=== PATIENT | female | born 1945 | race Caucasian/White ===

== ENCOUNTER 2016-05-08 14:18 | Outpatient (CLI) | payer OTHER ==
[~2016-05-08 14:18] MED LIST: ACETAMINOPHEN500 MG PO; ALEVE220 MG PO; CALCIUM 500; ESTRACE0.5 MG PO; FLOVENT HFA220 MCG INH; GLUCOSAMINE CHONDRO1 PO; HYCET1 ML PO; L-LYSINE500 M1 PO; LEVOTHYROXINE50 MCG PO; MAGNESIUM CITR100 MG PO; OMEGA; RHODIOLA PO; [UNRECOGNIZED DRUG - OTHER]
--- NOTE | 2016-05-08 16:45 | DIAGNOSTIC IMAGING REPORT ---
PROCEDURE: XR ABDOMEN 1 VIEW INDICATION: S/P LAPTOUPET,BACK PAIN TECHNIQUE: AP supine view. COMPARISON: None. FINDINGS: Bowel gas pattern is normal. No masses or unusual calcifications. Epigastric surgical changes. Moderate retrocardiac consolidation and small left pleural effusion. Mild levoconvex scoliosis and degenerative changes of the spine. IMPRESSION: 1. Nonspecific bowel gas pattern 2. Epigastric surgical change 3. Moderate retrocardiac consolidation and small left pleural effusion
--- NOTE | 2016-05-08 16:51 | DIAGNOSTIC IMAGING REPORT ---
PROCEDURE: XR CHEST 2 VIEW INDICATION: S/P LAPTOUPET,BACK PAIN TECHNIQUE: PA and lateral view. COMPARISON: Chest x-ray 05/22/2007 FINDINGS: Epigastric surgical changes with large hiatal hernia. Moderate left basilar consolidation and small left pleural effusion. Heart size, mediastinum and prior vessels are normal. No suspicious osseous lesions IMPRESSION: 1. Epigastric surgical changes with large hiatal hernia 2. Moderate retrocardiac consolidation and small left pleural effusion 3. Results discussed with Dr. Reynoso
== END 2016-05-08 23:00 ==
LOC: XR SRH 14:18
DX: J90 Pleural effusion, not elsewhere classified (principal)

== ENCOUNTER 2016-05-09 10:51 | Outpatient (CLI) | payer OTHER ==
--- NOTE | 2016-05-09 13:01 | DIAGNOSTIC IMAGING REPORT ---
PROCEDURE: XR BARIUM SWALLOW INDICATION: Status post hiatal hernia and diaphragmatic repair (04/26/2016). Mid and upper back pain. TECHNIQUE: Double contrast study. Fluoroscopy time, 1.7 minutes; 1595.52 mGy. 43 fluoroscopic images (including cine fluoroscopy of the esophagus). COMPARISON: Comparison is made to barium swallow on 02/22/2016 and recent chest x-ray (05/08/2016). FINDINGS: Postoperative changes of the epigastric region with surgical mesh and clips consistent with prior diaphragmatic/hiatal hernia repair. The body and distal stomach are located in subdiaphragmatic position. The gastric fundus is located in the lower thorax. There is equal filling of both moieties of the stomach with fluid level in the gastric fundus. There is mild to moderate narrowing at the gastroesophageal junction. There is moderate left lower lobe atelectasis/consolidation. IMPRESSION: 1. Postoperative change of the epigastrium consistent with hiatal hernia and diaphragmatic repair. 2. Gastric fundus is located lower thorax suggesting recurrent hiatal or paraesophageal hernia. 3. Moderate left lower lobe atelectasis/consolidation (previously documented). 4. CT thorax and abdomen may be of further assistance in evaluating these changes. 5. Findings I discussed with the patient and called to Dr. Reynoso.
== END 2016-05-09 23:00 ==
LOC: XR SRH 10:51
DX: M54.9 Dorsalgia, unspecified (principal)

== ENCOUNTER 2016-05-16 09:53 | Inpatient (IN) | payer OTHER ==
[~2016-05-16] VITALS: Ht 157.5 cm; Wt 77.8 kg
--- NOTE | 2016-05-16 11:36 | DIAGNOSTIC IMAGING REPORT ---
PROCEDURE: XR CHEST 2 VIEW INDICATION: PRE OP TECHNIQUE: PA and lateral view. COMPARISON: Chest x-ray 05/08/2016 and barium swallow 05/09/2016 FINDINGS: Moderate to large hiatal hernia with residual barium from recent barium swallow. Minor aspiration versus atelectasis in the right lung base. Epigastric surgical clips are present. Stable moderate retrocardiac consolidation and left pleural effusion/thickening. Heart size, mediastinum and pulmonary vessels are normal. Bony thorax is unremarkable. IMPRESSION: 1. Moderate to large hiatal hernia with minor right basilar aspiration versus atelectasis 2. Stable moderate retrocardiac consolidation with left pleural effusion/thickening 3. Epigastric surgical changes
[2016-05-16 13:59] VITALS: BP 148/93
[2016-05-16 15:41] VITALS: BP 144/76
[2016-05-16 18:20] VITALS: BP 143/71
[2016-05-16 22:40] VITALS: BP 138/73
[2016-05-17] VITALS (17 sets, daily range): BP systolic 126–157; BP diastolic 57–80
[2016-05-18] VITALS (8 sets, daily range): BP systolic 100–133; BP diastolic 60–80
--- NOTE | 2016-05-18 02:25 | OPERATIVE REPORT ---
DATE OF SURGERY: 05/17/2016 SURGEON: Toy Reynoso III, MD LIME SPREADER: Richi Bowser MD PREOPERATIVE DIAGNOSIS: 1. Recurrent Hiatal hernia POSTOPERATIVE DIAGNOSIS: 1. No evidence of recurrent hiatal hernia. Fundic wrap intact. PROCEDURES PERFORMED: 1. Diagnostic laparoscopy 2. Lysis of adhesions 3. Upper gastrointestinal endoscopy ANESTHESIA: TIVA. ESTIMATED BLOOD LOSS: Minimal. FLUIDS: 1600 mL of crystalloid solution. The patient was transfused 560 mL of blood. The patient was anemic preoperatively and anesthesia felt that it would behoove us to transfuse her prior to the surgery and they commenced giving the blood on the persaud and then continued it intraoperatively. DRAINS: Marquez catheter. URINE OUTPUT: 300 mL of urine during the case. INDICATIONS: The patient is a 70-year-old female who approximately 3 weeks ago underwent laparoscopic reduction of intrathoracic stomach with closure of large hiatal hernia with biologic mesh and Toupet procedure. Two weeks postoperatively, she was doing great. No dysphagia, no heartburn, no abdominal pain or chest discomfort. Then, approximately 1 week ago developed nausea and lower chest discomfort. This was followed by a chest x-ray which showed an effusion and possible consolidation in the left lower lobe along with intrathoracic air bubble, consistent with a herniated stomach into the chest. This was followed by a barium swallow, which confirmed the diagnosis by radiology. The patient stated that she had become nauseated and was able to vomit. This was thus the impression that she had disrupted her wrap and had herniated her stomach up back into chest. She was scheduled for an urgent surgery. SURGICAL FINDINGS: The patient was noted to have dense adhesions in the area of the crural approximation and the fundic wrap appeared intact. There was no evidence of hiatal disruption, i.e., anterior, posterior or on the right or the left. This was then followed by an upper gastrointestinal endoscopy, which showed the EG junction at approximately 38 cm from dental incisors and the fundic wrap from within the stomach intact with no gross evidence of a paraesophageal hernia. SURGICAL TECHNIQUE: The patient was brought to the operating room and placed in the dorsal supine position where she underwent general endotracheal anesthesia by the anesthesiology department. Marquez catheter was placed and an orogastric tube was passed to decompress the stomach and the bladder. The patient was placed in low lithotomy position. Her abdomen prepped with Betadine and draped in a sterile fashion. Through her previous supraumbilical incision, this site was infiltrated and a trocar was inserted into the abdominal cavity and pneumoperitoneum was achieved using CO2 insufflation to approximately 14-15 mmHg pressure. Once this pressure was reached, the trocar was removed, leaving the sleeve behind, through which a laparoscopic video camera was introduced into the abdominal cavity. Under direct visualization, a separate 10 mm trocar was placed in her previous surgical site in the left mid abdomen after having placed the self-retaining liver retractor through a subxiphoid port. The liver retractor was placed beneath the left lobe of the liver and retracted cephalad. Adhesions to the left lobe of the liver posteriorly were taken down using the Thunderbeat. Two 10 mm trocars were placed through her previous epigastric surgical sites. Each entered the abdominal cavity under direct visualization. The trocars were removed, leaving the sleeve behind, through which laparoscopic instrumentation was introduced in the abdominal cavity and a systematic exploration of the hiatus and crura was performed, taking down dense adhesions to the area of our wrap and to the crura. The gross appearance was the crural closure was still intact and that the wrap was well below the diaphragm within the abdominal cavity. This was carefully inspected. It was at this point I performed an upper gastrointestinal endoscopy. We were able to pass the scope to the patient's posterior pharynx while intubated, down the esophagus, through the EG junction, and into the gastric lumen. It was in the stomach, confirmed at laparoscopy by observing the light within the gastric lumen. The scope was withdrawn through the EG junction and once again confirmed at laparoscopy by following the light. The scope was retroflexed and good view of the cardia, fundus, EG junction as well as the greater and lesser curvature from below. Again, no paraesophageal hernia was identified. The crural wrap appeared to be intact. The scope was completely withdrawn after suctioning out the stomach. The pneumoperitoneum released after assuring myself of proper hemostasis, all trocars were removed from the abdominal cavity. All trocar sites approximated using 4-0 subdermal Polysorb and Steri-Strips. A sterile pressure occlusive dressings were placed over each site. The patient tolerated the procedure well, was extubated and transferred to the recovery room in stable condition.
--- NOTE | 2016-05-18 09:50 | DIAGNOSTIC IMAGING REPORT ---
PROCEDURE: US ABDOMEN ULTRASOUND-COMPLETE INDICATION: R/O biliary obstruction TECHNIQUE: Neal scale and color Doppler sonographic images of the abdomen were obtained. COMPARISON: Chest x-ray 05/16/2016 and barium swallow 05/09/2016 FINDINGS: Study limited by postoperative bandages in the upper abdomen. Normal liver measures 15 cm. Cholecystectomy. CBD measures 5 mm. No dilated intrahepatic ducts. Pancreas not visualized. Normal spleen measures 11.2 cm. Aorta and IVC are patent. Normal hepatopetal flow. Normal kidneys. Right kidney measures 11.3 cm and left kidney 11.6 cm. Small right pleural effusion. IMPRESSION: 1. Study limited by postoperative bandages 2. No evidence of biliary distention 3. Small right pleural effusion .
--- NOTE | 2016-05-18 14:58 | DIAGNOSTIC IMAGING REPORT ---
PROCEDURE: CT THORAX ABD PELVIS W/CONT INDICATION: Status post diaphragmatic / large hiatal hernia repair. Suspect mediastinal leak. TECHNIQUE: 125 ml of Isovue 300 injected intravenously and axial images were obtained of the entire thorax, abdomen, and pelvis with sagittal and coronal reformations. COMPARISON: Comparison is made to chest x-ray (05/16/2016), and barium swallow studies (05/09/2016, 02/22/2016). FINDINGS: THORAX: There is a 10 cm x 4 cm barium and fluid collection in the lower middle mediastinum with probable tract extending from the upper margin of the stomach (findings suggest prior Katrina fundoplication). There is moderate left lower lobe atelectasis/consolidation with a moderate left pleural effusion. There is mild right basilar atelectasis and small right pleural effusion. Heart is of normal size. Mid and upper mediastinum are normal are clear. Heart and mediastinum are normal. Thorax is normal. ABDOMEN: Small amount of subcutaneous and free intraperitoneal air compatible with recent postoperative changes. Moderate thickening of the gastric and proximal duodenal folds. Status post cholecystectomy (surgical clips). Liver, spleen (11.0 cm), pancreas, kidneys, and aorta are normal. Bowel pattern is within normal limits. Moderate levoscoliosis and moderate to marked degenerative change of the lumbar spine (with spinal stenosis at the L4-5 level). PELVIS: Residual barium contrast in the cecum obscures some detail. Moderate sigmoid diverticulosis. No evidence of diverticulitis. Small amount of postoperative free fluid in the pelvis. Marquez catheter in decompressed urinary bladder. IMPRESSION: 1. Postoperative change of the epigastric region (Katrina fundoplication and reported diaphragmatic hernia repair. 2. There is a 10 cm x 4 cm barium and fluid collection in the lower middle mediastinum with tract extending from the upper stomach. Findings are compatible with a contained gastric gastric/esophageal perforation. 3. Moderate left pleural effusion with left basilar atelectasis/consolidation. 4. Small right pleural effusion with mild right basilar atelectasis. 5. Moderate thickening of the gastric folds and proximal duodenal folds. Consider duodenitis/gastritis. 6. Status post cholecystectomy. 7. Small amount of free intraperitoneal air and fluid consistent with recent postoperative changes. 8. Moderate levoscoliosis and moderate to marked degenerative changes of the lumbar spine with spinal stenosis at L4-5. 9. Finding discussed with Dr. Reynoso. All CT scans at this facility use dose modulation, iterative reconstruction, and/or weight-based dosing when appropriate to reduce radiation dose to as low as reasonably achievable.
--- NOTE | 2016-05-18 15:49 | DISCHARGE SUMMARY ---
ADMIT DATE: 05/16/2016 DISCHARGE DATE: 05/18/2016 ADMISSION DIAGNOSES: 1. Recurrent hiatal hernia. 2. Dehydration. 3. Anemia. DISCHARGE DIAGNOSES: 1. No evidence of recurrent hiatal hernia. 2. Delayed perforation of the esophagus with contained perforation. 3. Hemolysis. 4. Liver function studies abnormality. 5. Hyperbilirubinemia. BRIEF HISTORY: The patient is a 70-year-old female who is status post reduction of intrathoracic stomach and closure of a large hiatal hernia with ACell biological mesh on 04/26/2016. She also underwent a Toupet procedure at that time. Postoperative course was unremarkable and she was discharged home. She was followed up in the clinic eventually began eating a regular diet. After a 2-week period of time, she felt like she was coming down with the flu; denied any dysphagia, reflux, heartburn or odynophagia. She denied any chest pain or abdominal discomfort. A chest x-ray was obtained to rule out pneumonia. She was noted to have a mild consolidation of her right lower lobe and an effusion, but was also noted to have gastric air bubble in the retrocardiac region. It was suspected that she had recurrent hiatal hernia when she gave a history of being nauseated and vomiting. We felt that she had disrupted her wrap and had a recurrence of her hiatal hernia. This was followed by a barium swallow, which confirmed contrast material above the diaphragm consistent with recurrent hiatal hernia. She was admitted to [facility] on 02/13/2017 for dehydration. She was noted to be anemic. Her bilirubin was 3.0. Her white count was 22,000. She was admitted and hydrated and prepared for surgery thinking perhaps that she had incarcerated and possibly even strangulated her paraesophageal or recurrent hiatal hernia. On 05/17/16 her white count had bumped to 33, and she was transfused 3 units of packed blood cells in preparation for surgery. Her bilirubin had jumped to 6.4. She was taken to the operating room where under general endotracheal anesthesia, she underwent diagnostic laparoscopy. Her fundic wrap and hiatal hernia closure was intact with no evidence of recurrence. At the time of surgery, an upper gastrointestinal endoscopy was performed, which showed no evidence of old blood or fresh blood in the stomach or duodenum. The EG junction was approximately 35-38 cm from the dental incisors. There appeared to be no erythema and no blood in the esophagus. After discussing our findings at surgery with radiology, I felt that this perhaps was an esophageal leak and not a recurrence of her hiatal hernia. She was scheduled for a CT of her chest, which in fact showed the barium still contained in the retrocardiac mediastinal region from her previous barium study of 03/15/2017. The remaining abdomen and pelvis appeared grossly normal. Postoperatively, her hematocrit after transfusion was 33.4. The next morning, however, it had dropped to 22.9. Her reticulocyte count was 4.6. Her platelet count was 291,000. We have a haptoglobin that was pending, but more importantly, her total bilirubin had gone from 6.4 to 18.2 with a direct component of 12.5. Her SGOT had gone from 88 to 215. Her SGPT had gone from 107 to 142. Alkaline phosphatase had dropped somewhat to 240 to 173. Ultrasound of her liver showed no evidence of hepatobiliary obstruction. The patient had undergone a cholecystectomy several years ago. Her Gurjit was positive. With this in mind, it was decided to transfer the patient for a Multispecialty service where she could have a thoracic surgery, GI, hematology/oncology, as well as hepatology involved in her case. The patient has never complained of any chest discomfort or abdominal discomfort ; never complained of any dysphagia or odynophagia, even at present. CONDITION AT TIME OF DISCHARGE: The patient is awake, alert, conversant, does not appear to be in any acute distress; however, she is grossly icteric. Her blood pressure is 126/65, pulse 105, respirations 23, temperature 99.7. Her O2 saturation 97% on 4 L. All trocar sites are clean. Her abdomen is nondistended. She had positive bowel sounds. IMPRESSION: She is being transferred to [facility] to be under the care of the thoracic surgeon, Dr. Vance, who I have had the opportunity to confer with and explain the situation about the patient's problem. He is the accepting physician. We will enclose her chest x-ray and barium swallow of 05/15/2016, as well as her CAT scan of 2016, and copies of her photos from her original surgery of 04/26/16, and the most recent surgery and EGD of 05/17/2016.
--- NOTE | 2016-05-18 21:00 | Consultation Report ---
Admission Admit Date 05/16/16 History Chief Complaint Hospitalist team consulted for worsening anemia with associated hyperbilirubinemia History of Present Illness 70 y/o female patient with PMH dyslipidemia, anemia who had repair of her hiatal hernia was admitted for redoing of hiatal hernia repair. As per the patient she had repair of hiatal hernia done on 04/26/16 and was sent home she was fine up until couple of week back she started to feel tired and terrible,had chest x-ray which showed signs of pneumonia for that she was treated with antibiotics, chest x-ray also showed retrocardiac air bubble, thought to have recurrent hernia, had barium swallow which was confirmatory for recurrent haital hernia. She was readmitted on 05/15/16 for recurrnet hiatal hernia repair had diagnostic laproscopy and endoscopy which did not show hernia recurrence or mesh displacement. At the time of admission she was anemic recieved multiple transfusion but her H/H kept dropping and she noted to have abnormal liver function with severe hyperbilirubinemia. Hospitalsit team consulted for severe anemia and hyperbilirubinemia. Patient History 1. 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 Medications and Allergies Medications Nexium Allergies Coded Allergies: Morphine (Severe, SEVERE ITCHING OF FACE 05/16/16) Review of Systems Constitutional Denies: Fever, Chills, Sweats, Weakness. Eyes Denies: Vision Change, Conjunctival Inflammation, Eyelid Inflammation, Redness. ENT Denies: Nasal Congestion, Mouth Pain, Mouth Swelling, Throat Pain, Throat Swelling. Respiratory Denies: Cough, Dry, SOB w/exertion, Wheezing, Hemoptysis. Cardiovascular Denies: Chest Pain, Palpitations, Orthopnea, PND, Edema. Gastrointestinal Nausea, Vomiting, Abdominal Pain. Denies: Diarrhea, Constipation, Melena. Genitourinary Denies: Dysuria, Frequency, Incontinence, Hematuria. Musculoskeletal Denies: Arm Pain, Back Pain. Neurological Denies: Weakness, Numbness, Incoordination, Change in speech, Confusion. Physical Exam Vital Signs / I&Os Vital Signs Date Time Temp Pulse Resp B/P Pulse O2 O2 Flow FiO2 Ox Delivery Rate 05/18 1402 99.9 105 22 102/60 98 Nasal 4.0 Cannula 05/18 1212 99.7 105 23 126/65 97 Nasal 4.0 Cannula 05/18 1054 97.9 106 18 115/69 97 Nasal 4.0 Cannula 05/18 0833 Nasal 4.0 Cannula 05/18 0800 4.0 05/18 0700 97.5 108 20 121/63 99 Nasal 4.0 Cannula 05/18 0422 99.9 108 20 133/68 95 Nasal 4.0 Cannula 05/18 0156 114/76 05/18 0154 121/80 05/18 0149 98.1 105 24 100/60 97 Nasal 4.0 Cannula 05/18 0000 124 Nasal 4.0 Cannula 05/17 2200 103 20 157/80 96 Nasal 4.0 Cannula I&O 05/17 0800 05/17 1600 05/18 0000 Intake Total 2 2608 50 Output Total 940 639 0733 Balance 1102 2108 -1775 General Appearance Alert, Oriented X3, No acute distress, overtly jaundiced HEENT icterus present Lungs bilateral air entry equal Neck Supple, No JVD Cardiovascular Regular rate and rhythm, Normal S1 and S2 Abdomen mild tenderness in the upper abdomen, sluggish bowel sounds present Extremities No edema, good peripheral pulses Neurological No lateralizing signs LAB Results Laboratory Tests 05/18 05/18 05/18 05/18 0600 0600 0600 1058 Chemistry Plasma Sodium (136 - 145 mmol/L) 137 Plasma Potassium (3.5 - 5.1 mmol/L) 3.8 Plasma Chloride (98 - 107 mmol/L) 103 CO2 (Enzymatic) (21 - 32 mmol/L) 30 BUN (7 - 18 mg/dL) 22 Creatinine (0.6 - 1.3 mg/dL) 0.6 Est GFR ( Amer) (mL/min) >60 Est GFR (Non-Af Amer) (mL/min) >60 Glucose (70 - 110 mg/dL) 117 Plasma Calcium (8.5 - 10.1 mg/dL) 8.0 Total Bilirubin (0.0 - 1.0 mg/dL) 18.2 Direct Bilirubin (0 - 0.3 mg/dL) 12.5 AST (15 - 37 U/L) 215 ALT (12 - 78 U/L) 142 Alkaline Phosphatase (46 - 116 U/L) 173 Lactate Dehydrogenase (117 - 222 U/L) 1202 Total Protein (6.4 - 8.2 g/dL) 5.1 Albumin (3.3 - 5.0 g/dL) 1.7 Coagulation INR Cancelled APTT Cancelled Hematology WBC (4.5 - 11.5 K/uL) 25.2 RBC (4.00 - 5.20 M/uL) 2.52 Hgb (12.0 - 16.0 gm/dL) 7.7 Hct (36.0 - 46.0 %) 22.9 MCV (80 - 100 fL) 91 MCH (26 - 34 pg) 30 RDW (11.6 - 14.8 %) 15.6 Neut % (Auto) (50 - 75 %) 83 Lymph % (Auto) (25 - 40 %) 11 [place] % (Auto) (3 - 14 %) 1 Eos % (Auto) (0 - 4 %) 0 Baso % (Auto) (0 - 2 %) 0 Reticulocyte % (Auto) (0.5 - 1.5 %) 4.6 Band Neutrophils % (0 - 8 %) 4 Metamyelocytes % (0 - 1 %) 1 Myelocytes (0 - 1 %) 0 Other Cell Type 0 Plt Count, EDTA (150 - 400 K/uL) 291 Polychromasia 1+ Anisocytosis (manual) 2+ PUBS MCHC (31 - 37 g/dL) 34 Haptoglobin Pending 05/18 1240 Coagulation INR (0.8 - 1.2) 1.5 APTT (24 - 34 SECONDS) 36 Fibrinogen (193 - 455 mg/dL) 600 D-Dimer, Quantitative (0.27 - 0.52 ug/mLFEU) 13.52 Microbiology Date/Time Procedure - Status Source Growth 05/18 219 Clostridium difficile Toxin A & B - COMP STOOL 05/18 219 Specimen Source - COMP STOOL Assessment and Plan Problem List 1. Hyperbilirubinemia Plan with severe anemia, with elevated LDH, Retic count and positive gema test, peripheral smear consistent with spur cells consider hemolysis of extravasation of blood/ Vs AI can give 1 dose of solumedrol check INR/PTT in view of elevted alk phos transfuse RBC's as needed check DIC panel, inc d dimer, fibrinogen For leukocytosis c/w current antibiotic CT scan thorax/abdomen and pelvis consistent with possible oesophageal perforation/with peritonitis Patient is transfered to high level care facility for furthur management
== END 2016-05-18 15:30 | disposition short-term general hospital (02) | DRG 327 ==
LOC: ACUTE2 SRH 09:53 → SCU SRH 09:53 → ACUTE2 SRH 15:47 → CC SRH 05-18 12:30
PROVIDERS: ADMIT Specialist
DX: K22.3 Perforation of esophagus (principal); D59.9 Acquired hemolytic anemia, unspecified; R58 Hemorrhage, not elsewhere classified; R11.2 Nausea with vomiting, unspecified; E80.6 Other disorders of bilirubin metabolism; R74.8 Abnormal levels of other serum enzymes; E86.0 Dehydration
CPT/HCPCS: 50002; 60001; 70002; 80102; 80124; 80212; 80248; 80852; 82284; 82794; 82807; 82897; 83197; 83587; 83919; 83982; 84038; 90001; 90052; 90074; 90100; 90112; 90137; 90155; 91004; 91162; 91163; 91544; 91556; 91643; 92680; 94001; 94050; 94060; 95059; 95140; 99098

== ENCOUNTER 2016-07-13 12:15 | Emergency (ER) | payer OTHER ==
--- NOTE | 2016-07-13 15:00 | ED CLINICAL REPORT ---
Clinical Report - Physicians/Mid Levels [facility] [address] [place] [address] 07/13/2016 12:15 [facility] BUSCH [id number] Time Seen: 13:08 Jul 13 2016. Arrived- By private vehicle. Historian- patient. CPT: ER phys charges level 3 (#[id number]). HISTORY OF PRESENT ILLNESS Chief Complaint: Sent by PCP for high INR. ( INR 12 yesterday. Pt is on coumadin for DVT left lower leg.). This started yesterday and is still present. At its maximum, severity described as severe. When seen in the E.D., severity described as severe. Modifying factors. Not worsened by anything. Not relieved by anything. No current or associated symptoms. (No bleeding). Similar symptoms previously: None. Recent medical care: The patient was seen recently at another facility in the office. REVIEW OF SYSTEMS No fever, sore throat, cough, difficulty breathing or chest pain. No abdominal pain, nausea, vomiting, diarrhea or black stools. No bloody stools, chills, difficulty with urination, abnormal bleeding or skin rash. No back pain, calf pain, headache, epistaxis or hematuria. No easy bruising. All systems otherwise negative, except as recorded above. PAST HISTORY Endoscopy. Hiatal hernia. Gallbladder Surgery. Hysterectomy. Tonsillectomy. DVT left leg. Medications: Est Estrogens-Methyltest Oral (Tablet 1.25-2.5 mg) 1/2 tablet, daily. Fluconazole Oral 200 mg, daily (last dose is day before yesterday). PARoxetine HCl Oral 20 mg (Last dose was 2 days ago). Warfarin Sodium Oral 7 mg, daily. Allergies: morphine. SOCIAL HISTORY Never smoker. No alcohol use or drug use. ADDITIONAL NOTES The nursing notes have been reviewed. PHYSICAL EXAM Vital Signs: 07/13/2016 12:34 BP: 126/82. HR: 94. RR: 18. O2 saturation: 100%. Temp: 98.0 F. Appearance: Alert. No acute distress. Eyes: Eyes normal inspection. ENT: Pharynx normal. CVS: Normal heart rate and rhythm. Heart sounds normal. Pulses normal. Respiratory: No respiratory distress. Breath sounds normal. Chest nontender. Abdomen: Soft and nontender. Back: Normal inspection. Skin: Skin warm. Normal skin color. No rash. Extremities: Extremities exhibit normal ROM. No lower extremity edema. Neuro: Oriented X 3. No motor deficit. No sensory deficit. LABS, X-RAYS, AND EKG Laboratory Tests: CBC w Diff: (AVIVA: 07/13/2016 13:50) ( [facility] [place] 07/13/[place] 14:10) Final results Test Result Flag Units (Reference) WHITE BLOOD COUNT 7.3 K/uL (4.5-11.5) RED BLOOD COUNT 3.92 L M/uL (4.00-5.20) HEMOGLOBIN 11.9 L gm/dL (12.0-16.0) HEMATOCRIT 36.1 % (36.0-46.0) MEAN CELL VOLUME 92 fL (80-100) MEAN CORPUSCULAR HGB 30 pg (26-34) MEAN CORPUSCULAR HGB CONC 33 g/dL (31-37) RED CELL DISTRIBUTION WIDTH 17.0 H % (11.6-14.8) PLATELET COUNT 318 K/uL (150-400) NEUTROPHIL % 77.8 H % (50-75) LYMPH % 13.8 L % (25-40) MONO % 7.2 % (3-14) EOSINOPHIL % 0.4 % (0-4) BASOPHIL % 0.8 % (0-2) PT with INR: (AVIVA: 07/13/2016 13:50) ( [facility] [place] 14[place] Final results Test Result Flag Units (Reference) INR 8.6 *H (0.8-1.2) CRITICAL RESULTS CALLEDCalled to CHERI CALHOUN IN ED 07/13/16 1421Were 2 patient identifiers used? YWas the result read back? YLow Intensity Therapy: INR 1.5-2.0 PT range 18.5-23.1Mod.Intensity Therapy: INR 2.0-3.0 PT range 23.1-31.5High Intensity Therapy: INR 2.5-3.5 PT range 27.4-35.5High Intensity Therapy 2: INR 3.0-4.0 PT range 31.5-39.3 . PROGRESS AND PROCEDURES Course of Care: INR 12 yesterday and 8.6 today. Vit K 10 mg IM Pt will return for INR on Saturday. Discussed case with on-call health care provider, (Lia). Reviewed test results. Agreed upon treatment plan. Health care provider will see patient in office. Patient/family counseled. Disposition: Discharged. Condition: stable. CLINICAL IMPRESSION DVT left leg Over-anticoagulated. INSTRUCTIONS (Return Saturday for repeat INR.). Warnings: Further evaluation is necessary. GENERAL WARNINGS: Return or contact your physician immediately if your condition worsens or changes unexpectedly, if not improving as expected, or if other problems arise. Follow-up: Return to the emergency department for INR. Saturday in two days even if well. Understanding of the discharge instructions verbalized by patient. Discharge instructions reviewed with and understanding was verbalized by spouse. Follow-up with: Kaushik Fitzgerald MD, [facility], [phone], [facility], [address] [place] [address].[address], [facility] Follow up Saturday in four days. Call for the next available appointment. (Electronically signed by Franky Collier MD 07/16/2016 10:34)
--- NOTE | 2016-07-13 15:00 | ED ORDER SUMMARY ---
..... Patient: GERMÁN BUSCH OrderSheet [facility] VisitID: [id number] [place] [address] 71y, F Registration Date/Time: 07/13/2016 ORDER SHEET Weight: 68.0 kg (stated) Allergies: morphine GENERAL ORDERS: PT with INR Urgent (13:56 07/13/2016 Piedad MoralesNWade verbal order read back to Jade SWEENEY) (Ack 13:58 Mary Alice) (14[facility] CBC w Diff Urgent (14:03 07/13/2016 Jade SWEENEY) (Ack 14:05 Mary Alice) (14:12 [facility] [place] MEDICATION ORDERS: Vit K IM 10 mg (NOW) (14:53 07/13/2016 Jade SWEENEY) (15:10 ASchmuck) IV FLUIDS: IV Saline Lock (13:56 07/13/2016 Piedad Anguiano verbal order read back to Jade SWEENEY) (13:56 Piedad R.N.) ORDER SHEET NOTES: [Electronically signed by Karoline Kate R.N. (15:33 07/13/2016)] [Electronically signed by Franky Collier MD (10:34 07/16/2016)] [Electronically locked/signed by Karoline Kate R.N. (15:33 07/13/2016)]
--- NOTE | 2016-07-13 15:00 | ED CLINICAL REPORT ---
Clinical Report - Physicians/Mid Levels [facility] [address] [place] [address] 07/13/2016 12:15 [id number] Time Seen: 13:08 Jul 13 2016. Arrived- By private vehicle. Historian- patient. CPT: ER phys charges level 3 (#[id number]). HISTORY OF PRESENT ILLNESS Chief Complaint: Sent by PCP for high INR. ( INR 12 yesterday. Pt is on coumadin for DVT left lower leg.). This started yesterday and is still present. At its maximum, severity described as severe. When seen in the E.D., severity described as severe. Modifying factors. Not worsened by anything. Not relieved by anything. No current or associated symptoms. (No bleeding). Similar symptoms previously: None. Recent medical care: The patient was seen recently at another facility in the office. REVIEW OF SYSTEMS No fever, sore throat, cough, difficulty breathing or chest pain. No abdominal pain, nausea, vomiting, diarrhea or black stools. No bloody stools, chills, difficulty with urination, abnormal bleeding or skin rash. No back pain, calf pain, headache, epistaxis or hematuria. No easy bruising. All systems otherwise negative, except as recorded above. PAST HISTORY Endoscopy. Hiatal hernia. Gallbladder Surgery. Hysterectomy. Tonsillectomy. DVT left leg. Medications: Est Estrogens-Methyltest Oral (Tablet 1.25-2.5 mg) 1/2 tablet, daily. Fluconazole Oral 200 mg, daily (last dose is day before yesterday). PARoxetine HCl Oral 20 mg (Last dose was 2 days ago). Warfarin Sodium Oral 7 mg, daily. Allergies: morphine. SOCIAL HISTORY Never smoker. No alcohol use or drug use. ADDITIONAL NOTES The nursing notes have been reviewed. PHYSICAL EXAM Vital Signs: 07/13/2016 12:34 BP: 126/82. HR: 94. RR: 18. O2 saturation: 100%. Temp: 98.0 F. Appearance: Alert. No acute distress. Eyes: Eyes normal inspection. ENT: Pharynx normal. CVS: Normal heart rate and rhythm. Heart sounds normal. Pulses normal. Respiratory: No respiratory distress. Breath sounds normal. Chest nontender. Abdomen: Soft and nontender. Back: Normal inspection. Skin: Skin warm. Normal skin color. No rash. Extremities: Extremities exhibit normal ROM. No lower extremity edema. Neuro: Oriented X 3. No motor deficit. No sensory deficit. LABS, X-RAYS, AND EKG Laboratory Tests: CBC w Diff: (AVIVA: 07/13/2016 13:50) ( [facility] [place] 07/[place] 14:10) Final results Test Result Flag Units (Reference) WHITE BLOOD COUNT 7.3 K/uL (4.5-11.5) RED BLOOD COUNT 3.92 L M/uL (4.00-5.20) HEMOGLOBIN 11.9 L gm/dL (12.0-16.0) HEMATOCRIT 36.1 % (36.0-46.0) MEAN CELL VOLUME 92 fL (80-100) MEAN CORPUSCULAR HGB 30 pg (26-34) MEAN CORPUSCULAR HGB CONC 33 g/dL (31-37) RED CELL DISTRIBUTION WIDTH 17.0 H % (11.6-14.8) PLATELET COUNT 318 K/uL (150-400) NEUTROPHIL % 77.8 H % (50-75) LYMPH % 13.8 L % (25-40) MONO % 7.2 % (3-14) EOSINOPHIL % 0.4 % (0-4) BASOPHIL % 0.8 % (0-2) PT with INR: (AVIVA: 07/13/2016 13:50) ( [facility] [place] 14:22) Final results Test Result Flag Units (Reference) INR 8.6 *H (0.8-1.2) CRITICAL RESULTS CALLEDCalled to CHERI CALHOUN IN ED 07/13/16 1421Were 2 patient identifiers used? YWas the result read back? YLow Intensity Therapy: INR 1.5-2.0 PT range 18.5-23.1Mod.Intensity Therapy: INR 2.0-3.0 PT range 23.1-31.5High Intensity Therapy: INR 2.5-3.5 PT range 27.4-35.5High Intensity Therapy 2: INR 3.0-4.0 PT range 31.5-39.3 . PROGRESS AND PROCEDURES Course of Care: INR 12 yesterday and 8.6 today. Vit K 10 mg IM Pt will return for INR on Saturday. Discussed case with on-call health care provider, (Lia). Reviewed test results. Agreed upon treatment plan. Health care provider will see patient in office. Patient/family counseled. Disposition: Discharged. Condition: stable. CLINICAL IMPRESSION DVT left leg Over-anticoagulated. INSTRUCTIONS (Return Saturday for repeat INR.). Warnings: Further evaluation is necessary. GENERAL WARNINGS: Return or contact your physician immediately if your condition worsens or changes unexpectedly, if not improving as expected, or if other problems arise. Follow-up: Return to the emergency department for INR. Saturday in two days even if well. Understanding of the discharge instructions verbalized by patient. Discharge instructions reviewed with and understanding was verbalized by spouse. Follow-up with: Kaushik Fitzgerald MD, [facility], [phone], [facility], [address] [place] [address].[address], [employer] Follow up Saturday in four days. Call for the next available appointment. (Electronically signed by Franky Collier MD 07/16/2016 10:34)
--- NOTE | 2016-07-13 15:00 | ED NURSING NOTES ---
Clinical Report - Nurses [facility] [address] [place] [address] 07/13/2016 12:15 [id number] TRIAGE Triage time 12:Jul 13 2016. Acuity: LEVEL 3. Chief Complaint: (High INR). 12:34 07/13/16. Alert. No acute distress. SEPSIS SCREEN: Sepsis Screen. Negative (no infection suspected/documented). GISELLE COMA SCORE: [place] Coma Scale: 15- eyes open spontaneously (4); best verbal response- oriented x 4 (5); best motor response- obeys commands (6). --12:34 Hemalatha Walton 12:34 07/13/16. BP: 126/82. HR: 94. RR: 18. O2 saturation: 100%. Temp: 98.0 F. Pain level now 0/10. --12:34 Hemalatha Walton. Weight: 68 kg stated. Height/Length: 62 inches Per Patient. BMI: 27.4. --12:33 Hemalatha Walton. Medications Warfarin Sodium Oral 7 mg, daily. --12:28 Hemalatha Walton PARoxetine HCl Oral 20 mg (Last dose was 2 days ago). --12:28 Hemalatha Walton Fluconazole Oral 200 mg, daily (last dose is day before yesterday). --12:29 Hemalatha Walton Est Estrogens-Methyltest Oral (Tablet 1.25-2.5 mg) 1/2 tablet, daily. --12:30 Hemalatha Walton. Medication/allergy information source: the patient. --12:34 Hemalatha Walton. Allergies morphine. --12:30 Hemalatha Walton. History Arrived by private vehicle. Historian: patient. Accompanied by family. Primary physician (Lia). Onset. (Saturday). ( Pt reports that she has had a high INR (over 8) that hasn't come down since Saturday. Had been off of Warfarin for surgery and then put on a dose of 7 mg after. Pt reports past history of blood clots. Was seen at PCP yesterday, who wanted her to come in this AM.). Treatment [employer]: None. PAST MEDICAL HX: Immunizations: up-to-date. SOCIAL HX: Never smoker. No alcohol use or drug use. FALL RISK ASSESSMENT: Fall risk assessment completed. No fall risk identified. NUTRITIONAL RISK ASSESSMENT: The nutritional risk assessment revealed no deficiencies. FUNCTIONAL ASSESSMENT: Functional assessment: no impairments noted. LEARNING NEEDS ASSESSMENT: The learning needs assessment revealed no barriers. SKIN INTEGRITY ASSESSMENT: Skin integrity risk assessment completed. No skin integrity risk identified. --12:34 Hemalatha Walton. PROBLEMS: DVT - Deep Venous Thrombosis. --12:32 Hemalatha Walton. ADDITIONAL SURGERIES: Endoscopy. Hiatal hernia. --12:32 Hemalatha Walton Gallbladder Surgery. Hysterectomy. Tonsillectomy. --12:33 Hemalatha Walton. Assessment The patient states feels the same. --12:34 Hemalatha Walton. Interventions ID band on patient. --12:34 Hemalatha Walton. PHYSICAL ASSESSMENT 12:35 07/13/16. Ambulatory to room. GENERAL / NEURO / PSYCH: Alert. Oriented X 4. Appears in no acute distress. HEENT: Pupils equal, round and reactive to light. No facial asymmetry noted. Mucous membranes are pink. RESPIRATORY: Chest nontender. Breath sounds within normal limits. CVS: Capillary refill less than 2 seconds. Pulses within normal limits. GI / : Abdomen soft and nontender. SKIN: Skin intact. Skin is warm and dry. Normal skin turgor. --12:35 Hemalatha Walton. NURSING PROGRESS NOTES 12:35 07/13/16. The plan of care for this patient has been created. Head of bed elevated. Reassurance given. Two patient identifiers checked. Call light placed in reach. Side rails up x 1. Bed placed in lowest position. Brakes of bed on. Patient ready for evaluation- chart flagged and ED physician notified. --12:35 Hemalatha Walton 13:41 07/13/16. BP: 97/72. HR: 84. RR: 14. O2 saturation: 99%. Pain level now 0/10. --13:41 Hemalatha Walton 13:56 07/13/2016 Site #1 started via IV in the right forearm with an 20g angiocath, with aseptic technique and good blood return; one attempt. Blood drawn: rainbow set. Labeled in the presence of the patient and sent to the lab. Saline lock flushed with 10 mL saline. --13:56 Carmina Arroyo R.N. 14:10 07/13/16. BP: 110/78 taken manually. --14:10 Hemalatha Walton 14:21 07/13/16. Critical value relayed to ED by Lab. Critical value received by RN. INR: 8.6. Critical value read back. Verified lab result and patient ID. ED physician notifed of critical value. --14:21 Hemalatha Walton 15:05 07/13/2016 Vit K (Vitamin K1) IM 10 mg given. Given in the right gluteus dena. Allergies verified and confirmed 5 rights. --15:10 Hemalatha Walton 15:10 07/13/2016 Site #1 removed upon discharge. Catheter intact. Pressure dressing applied. --15:10 Hemalatha Walton 15:30 07/13/2016 Vit K IM Response: no adverse reaction. --15:32 Karoline Kate R.N. DISPOSITION / DISCHARGE 15:11 07/13/16. Condition at departure: improved. The goals identified in the patient's plan of care were met. --15:11 Hemalatha Walton 15:10 07/13/16. BP: 105/71. HR: 86. RR: 14. O2 saturation: 97% on room air. Pain level now: 0/10. --15:11 Hemalatha Walton 15:15 07/13/16. No learning barriers present. Discharge instructions provided and reviewed with the patient and spouse. Reviewed warnings (Patient verbalized understanding of importance of following up for recheck.). Treatments reviewed. Reviewed referral to a primary care physician for followup. Patient verbalized understanding. Written instructions provided in [place]. The patient was discharged by the physician. She was discharged home and accompanied by spouse. She left the Emergency Department ambulatory and via private vehicle. Spouse driving. --15:15 Hemalatha Walton Departure time: 1530 PM. Condition at departure: stable. The goals identified in the patient's plan of care were met. No learning barriers present. Discharge instructions provided and reviewed with the patient. Treatments reviewed. Patient verbalized understanding. Written instructions provided in [place]. ( Pt expresses understanding of returning to ED for follow up- warnings of CP, bleeding due to high IRN reviewed). The patient was discharged by the physician. She was discharged home and accompanied by spouse. She left the Emergency Department ambulatory and via private vehicle. Spouse driving. FALL RISK ASSESSMENT: Fall risk assessment completed. No fall risk identified. --15:32 Karoline Kate R.N. 15:27 07/13/16. BP: 133/85. HR: 98. RR: 16 (unlabored). O2 saturation: 100% on room air. Temp: 98.1 F (oral). Pain level now: 0/10. --15:32 Karoline Kate R.N. Locked/Released at 07/13/2016 15:33 by Karoline Kate R.N.
--- NOTE | 2016-07-13 15:00 | ED ORDER SUMMARY ---
..... Patient: GERMÁN BUSCH OrderSheet [facility] VisitID: [id number] [place] [address] 71y, F Registration Date/Time: 07/13/2016 ORDER SHEET Weight: 68.0 kg (stated) Allergies: morphine GENERAL ORDERS: PT with INR Urgent (13:56 07/13/2016 Piedad MoralesNWade verbal order read back to Jade SWEENEY) (Ack 13:58 Mary Alice) ([facility] [place] w Diff Urgent (14:03 07/13/2016 Jade SWEENEY) (Ack 14:05 Mary Alice) (14:[place] [facility] [place] MEDICATION ORDERS: Vit K IM 10 mg (NOW) (14:53 07/13/2016 Jade SWEENEY) (15:10 ASchmuck) IV FLUIDS: IV Saline Lock (13:56 07/13/2016 Piedad Anguiano verbal order read back to Jade SWEENEY) (13:56 Piedad R.N.) ORDER SHEET NOTES: [Electronically signed by Karoline Kate R.N. (15:33 07/13/2016)] [Electronically signed by Franky Collier MD (10:34 07/16/2016)] [Electronically locked/signed by Karoline Kate R.N. (15:33 07/13/2016)]
--- NOTE | 2016-07-16 10:34 | ED MED RECONCILIATION SUMMARY ---
Patient: GERMÁN BUSCH Medication Reconciliation Report [facility] VisitID: [id number] [address] [place] [address] 71y, F Registration Date/Time: 07/13/2016 Weight: 68.0 kg Height/Length: 62 in. BMI: 27.4 ALLERGIES: morphine The patient's Home Medications are listed below: THE FOLLOWING MEDICATIONS NEED TO BE RECONCILED: Est Estrogens-Methyltest Oral (1.25-2.5 mg) 1/2 tablet, daily Fluconazole Oral 200 mg, daily, last dose is day before yesterday PARoxetine HCl Oral 20 mg, Last dose was 2 days ago Warfarin Sodium Oral 7 mg, daily The source(s) of the original Home Medication information: patient The following Medications were given to the patient in the Emergency Department: Vit K [IM] IM 10 mg, administered: 07/13/2016 3:05:00 PM The following Medications were prescribed to the patient: None.
--- NOTE | 2016-07-16 10:34 | ED DISCHARGE INSTRUCTIONS ---
Patient: GERMÁN BUSCH General Instructions [facility] VisitID: [id number] [address] [place] [address] 71y, F Registration Date/Time: 07/13/2016 DVT left leg Over-anticoagulated. INSTRUCTIONS (Return Saturday for repeat INR.). Warnings: Further evaluation is necessary. GENERAL WARNINGS: Return or contact your physician immediately if your condition worsens or changes unexpectedly, if not improving as expected, or if other problems arise. Follow-up: Return to the emergency department for INR. Saturday in two days even if well. Understanding of the discharge instructions verbalized by patient. Discharge instructions reviewed with and understanding was verbalized by spouse. Follow-up with: Kaushik Fitzgerald MD, [facility], [phone], [facility], [address] [place] [address] Follow up Saturday in four days. Call for the next available appointment. (Electronically signed by Franky Collier MD 07/16/2016 10:34)
--- NOTE | 2016-07-16 10:34 | ED MAR SUMMARY ---
..... Medication Administration Record [facility] [address] [place] [address] Patient: GERMÁN BUSCH Visit ID: [id number] 71y, F Weight: 68.0 kg Height/Length: 62 in BMI: 27.4 ALLERGIES: morphine Given 15:05 07/13/2016 Hemalatha Walton, Medication Administered: VIT K [IM] (VITAMIN K1), Dose: 10 mg IM. Medication Ordered: Vit K IM 10 mg (NOW).
--- NOTE | 2016-07-16 10:34 | ED MED RECONCILIATION SUMMARY ---
Patient: GERMÁN BUSCH Medication Reconciliation Report [facility] VisitID: [id number] [address] [place] [address] 71y, F Registration Date/Time: 07/13/2016 Weight: 68.0 kg Height/Length: 62 in. BMI: 27.4 ALLERGIES: morphine The patient's Home Medications are listed below: THE FOLLOWING MEDICATIONS NEED TO BE RECONCILED: Est Estrogens-Methyltest Oral (1.25-2.5 mg) 1/2 tablet, daily Fluconazole Oral 200 mg, daily, last dose is day before yesterday PARoxetine HCl Oral 20 mg, Last dose was 2 days ago Warfarin Sodium Oral 7 mg, daily The source(s) of the original Home Medication information: patient The following Medications were given to the patient in the Emergency Department: Vit K [IM] IM 10 mg, administered: 07/13/2016 3:05:00 PM The following Medications were prescribed to the patient: None.
--- NOTE | 2016-07-16 10:34 | ED MAR SUMMARY ---
..... Medication Administration Record [facility] [address] [place] [address] Patient: GERMÁN BUSCH Visit ID: [id number] 71y, F Weight: 68.0 kg Height/Length: 62 in BMI: 27.4 ALLERGIES: morphine Given 15:05 07/13/2016 Hemalatha Walton, Medication Administered: VIT K [IM] (VITAMIN K1), Dose: 10 mg IM. Medication Ordered: Vit K IM 10 mg (NOW).
--- NOTE | 2016-07-16 10:34 | ED DISCHARGE INSTRUCTIONS ---
Patient: GERMÁN BUSCH General Instructions [facility] VisitID: [id number] [address] [place] [address] 71y, F Registration Date/Time: 07/13/2016 DVT left leg Over-anticoagulated. INSTRUCTIONS (Return Saturday for repeat INR.). Warnings: Further evaluation is necessary. GENERAL WARNINGS: Return or contact your physician immediately if your condition worsens or changes unexpectedly, if not improving as expected, or if other problems arise. Follow-up: Return to the emergency department for INR. Saturday in two days even if well. Understanding of the discharge instructions verbalized by patient. Discharge instructions reviewed with and understanding was verbalized by spouse. Follow-up with: Kaushik Fitzgerald MD, [facility], [phone], [facility], [address] [place] [address] Follow up Saturday in four days. Call for the next available appointment. (Electronically signed by Franky Collier MD 07/16/2016 10:34)
== END 2016-07-13 15:31 | disposition home or self-care (01) ==
LOC: ED SRH 12:15
DX: I82.402 Acute embolism and thrombosis of unspecified deep veins of left lower extremity (principal); T45.515A Adverse effect of anticoagulants, initial encounter; Z79.01 Long term (current) use of anticoagulants; Z79.899 Other long term (current) drug therapy; Z88.5 Allergy status to narcotic agent
CPT/HCPCS: 94060; 95059

== ENCOUNTER 2016-07-15 13:38 | Emergency (ER) | payer OTHER ==
--- NOTE | 2016-07-15 14:49 | ED NURSING NOTES ---
Clinical Report - Nurses [facility] [address] [place] [address] 07/15/2016 13:39 Patient: GERMÁN BUSCH TRIAGE Triage time 13:45. Acuity: LEVEL 5. Chief Complaint: (HIGH INR, PT INSTRUCTED TO COME BACK TO ED BY ERMD). Alert. --13:49 Carmina Arroyo R.N. 13:45 07/15/16. BP: 117/73. HR: 87. RR: 18. O2 saturation: 100%. Pain level now: 0/10. --13:49 Carmina Arroyo R.N. 13:53 07/15/16. Temp: 98.3 F. --13:53 Carmina Arroyo R.N. Weight: 68 kg. Height/Length: 62 inches. BMI: 27.4. --13:45 Carmina Arroyo R.N. Medications Est Estrogens-Methyltest Oral (Tablet 1.25-2.5 mg) 1/2 tablet, daily. Fluconazole Oral 200 mg, daily (last dose is day before yesterday). PARoxetine HCl Oral 20 mg (Last dose was 2 days ago). --13:47 Carmina Arroyo R.N. Allergies morphine. --13:47 Carmina Arroyo R.N. History Arrived by private vehicle. Historian: patient. Accompanied by spouse. Onset. (6 days ago). --13:49 Carmina Arroyo R.N. PROBLEMS: DVT - Deep Venous Thrombosis. --13:48 Carmina Arroyo R.N. ADDITIONAL SURGERIES: Endoscopy. Gallbladder Surgery. Hiatal hernia. Hysterectomy. Tonsillectomy. --13:48 Carmina Arroyo R.N. Interventions ID band on patient. To room. --13:49 Carmina Arroyo R.N. PHYSICAL ASSESSMENT 13:49 07/15/16. GENERAL / NEURO / PSYCH: Alert. Oriented X 4. --13:49 Carmina Arroyo R.N. 13:47. GI / : ( Pt has gastrostomy tube). --13:50 Carmina Arroyo R.N. NURSING PROGRESS NOTES 13:49 07/15/16. Patient identifiers checked. Call light placed in reach. Bed placed in lowest position. Patient ready for evaluation- chart flagged. --13:49 Carmina Arroyo R.N. 13:55. Patient ID band checked for patient name and birthdate: patient confirmed. Blood samples drawn from the right antecubital space with syringe and 22g butterfly by [employer] per protocol ; labeled in presence of the patient and sent to lab: DailyLook set. --14:07 Adriana Connelly. DISPOSITION / DISCHARGE 15:01 07/15/16. BP: 106/74. HR: 78. RR: 18. O2 saturation: 100%. --15:02 Carmina Arroyo R.N. 15:00. Condition at departure: improved. No learning barriers present. Reviewed medication(s) information (restart Coumadin tomorrow at 2 mg/daily). Reviewed referrals (Dr. Fitzgerald). Patient and spouse verbalized understanding. Written instructions provided. The patient was discharged home and accompanied by spouse. She left the Emergency Department ambulatory and via private vehicle. --15:03 Carmina Arroyo R.N. Locked/Released at 07/15/2016 15:04 by Carmina Arroyo R.N.
--- NOTE | 2016-07-15 14:49 | ED CLINICAL REPORT ---
Clinical Report - Physicians/Mid Levels [facility] [address] [place] [address] 07/15/2016 13:39 [id number] Time Seen: 13:47 Mar 12 2016. Arrived- By private vehicle. Historian- patient. CPT: ER phys charges level 3 (#[id number]). HISTORY OF PRESENT ILLNESS Chief Complaint: Follow up for high INR. ( Pt had initial INR of 12, then 8 two days ago and now her for recheck off coumadin and after vitamin K injection.). This started several days ROLL ON MAN and is still present. At its maximum, severity described as moderate. When seen in the E.D., severity described as moderate. Modifying factors. Not worsened by anything. Not relieved by anything. No current or associated symptoms. (No reports of bleeding.). Similar symptoms previously: None. Recent medical care: The patient was seen recently at this facility. REVIEW OF SYSTEMS No fever, sore throat, diarrhea, black stools or bloody stools. No difficulty with urination, abnormal bleeding, skin rash or headache. All systems otherwise negative, except as recorded above. PAST HISTORY See nurses notes. DVT - Deep Venous Thrombosis. . ADDITIONAL SURGERIES: Endoscopy. Gallbladder Surgery. Hiatal hernia. Hysterectomy. Tonsillectomy. Medications: Est Estrogens-Methyltest Oral (Tablet 1.25-2.5 mg) 1/2 tablet, daily. Fluconazole Oral 200 mg, daily (last dose is day before yesterday). PARoxetine HCl Oral 20 mg (Last dose was 2 days ago). Allergies: morphine. SOCIAL HISTORY No alcohol use. ADDITIONAL NOTES The nursing notes have been reviewed. PHYSICAL EXAM Vital Signs: 07/15/2016 13:45 BP: 117/73. HR: 87. RR: 18. O2 saturation: 100%. Pain level now: 0/10. Appearance: Alert. No acute distress. Eyes: Eyes normal inspection. ENT: Pharynx normal. CVS: Normal heart rate and rhythm. Respiratory: No respiratory distress. Abdomen: Nontender. Skin: Skin warm. Normal skin color. No rash. Extremities: Extremities exhibit normal ROM. No calf tenderness. No lower extremity edema. Neuro: Oriented X 3. LABS, X-RAYS, AND EKG Laboratory Tests: CBC w Diff: (AVIVA: 07/15/2016 13:55) ( [facility] 07[facility] 14[facility]16) Final results Test Result Flag Units (Reference) WHITE BLOOD COUNT 5.3 K/uL (4.5-11.5) RED BLOOD COUNT 3.97 L M/uL (4.00-5.20) HEMOGLOBIN 11.9 L gm/dL (12.0-16.0) HEMATOCRIT 36.5 % (36.0-46.0) MEAN CELL VOLUME 92 fL (80-100) MEAN CORPUSCULAR HGB 30 pg (26-34) MEAN CORPUSCULAR HGB CONC 33 g/dL (31-37) RED CELL DISTRIBUTION WIDTH 16.8 H % (11.6-14.8) PLATELET COUNT 329 K/uL (150-400) NEUTROPHIL % 72.7 % (50-75) LYMPH % 17.6 L % (25-40) MONO % 8.2 % (3-14) EOSINOPHIL % 1.1 % (0-4) BASOPHIL % 0.4 % (0-2) PT with INR: (AVIVA: 07/15/2016 13:55) ( [facility] 07/15/2016 14:34) Final results Test Result Flag Units (Reference) INR 3.3 H (0.8-1.2) Low Intensity Therapy: INR 1.5-2.0 PT range 18.5-23.1Mod.Intensity Therapy: INR 2.0-3.0 PT range 23.1-31.5High Intensity Therapy: INR 2.5-3.5 PT range 27.4-35.5High Intensity Therapy 2: INR 3.0-4.0 PT range 31.5-39.3 . PROGRESS AND PROCEDURES Patient/family counseled. Disposition: Discharged. Condition: stable and improved. CLINICAL IMPRESSION Over-anticoagulation: Improved to INR 3.3. INSTRUCTIONS (Start coumadin tomorrow at 2mg a day until see Dr Fitzgerald). Warnings: Further evaluation is necessary. GENERAL WARNINGS: Return or contact your physician immediately if your condition worsens or changes unexpectedly, if not improving as expected, or if other problems arise. Your Current Medications: CONTINUE TAKING THE FOLLOWING MEDICATIONS: Est Estrogens-Methyltest Oral : Tablet 1.25-2.5 mg, 1/2 tablet daily. Fluconazole Oral : 200 mg daily, last dose is day before yesterday. PARoxetine HCl Oral : 20 mg, Last dose was 2 days ago. Understanding of the discharge instructions verbalized by patient and family. Discharge instructions reviewed with and understanding was verbalized by spouse. Follow-up with: Kaushik Fitzgerald MD, [facility], [phone], [facility], [address] [place] [address].[address], [facility] Follow up Saturday in two days as scheduled. (Electronically signed by Franky Collier MD 07/19/2016 7:42)
--- NOTE | 2016-07-15 14:49 | ED CLINICAL REPORT ---
Clinical Report - Physicians/Mid Levels [facility] [address] [place] [address] 07/15/2016 13:39 [id number] Time Seen: 13:47 Mar 12 2016. Arrived- By private vehicle. Historian- patient. CPT: ER phys charges level 3 (#[id number]). HISTORY OF PRESENT ILLNESS Chief Complaint: Follow up for high INR. ( Pt had initial INR of 12, then 8 two days ago and now her for recheck off coumadin and after vitamin K injection.). This started several days [employer]ORE [employer]IST and is still present. At its maximum, severity described as moderate. When seen in the E.D., severity described as moderate. Modifying factors. Not worsened by anything. Not relieved by anything. No current or associated symptoms. (No reports of bleeding.). Similar symptoms previously: None. Recent medical care: The patient was seen recently at this facility. REVIEW OF SYSTEMS No fever, sore throat, diarrhea, black stools or bloody stools. No difficulty with urination, abnormal bleeding, skin rash or headache. All systems otherwise negative, except as recorded above. PAST HISTORY See nurses notes. DVT - Deep Venous Thrombosis. . ADDITIONAL SURGERIES: Endoscopy. Gallbladder Surgery. Hiatal hernia. Hysterectomy. Tonsillectomy. Medications: Est Estrogens-Methyltest Oral (Tablet 1.25-2.5 mg) 1/2 tablet, daily. Fluconazole Oral 200 mg, daily (last dose is day before yesterday). PARoxetine HCl Oral 20 mg (Last dose was 2 days ago). Allergies: morphine. SOCIAL HISTORY No alcohol use. ADDITIONAL NOTES The nursing notes have been reviewed. PHYSICAL EXAM Vital Signs: 07/15/2016 13:45 BP: 117/73. HR: 87. RR: 18. O2 saturation: 100%. Pain level now: 0/10. Appearance: Alert. No acute distress. Eyes: Eyes normal inspection. ENT: Pharynx normal. CVS: Normal heart rate and rhythm. Respiratory: No respiratory distress. Abdomen: Nontender. Skin: Skin warm. Normal skin color. No rash. Extremities: Extremities exhibit normal ROM. No calf tenderness. No lower extremity edema. Neuro: Oriented X 3. LABS, X-RAYS, AND EKG Laboratory Tests: CBC w Diff: (AVIVA: 07/15/2016 13:55) ( [facility] 14[facility]16) Final results Test Result Flag Units (Reference) WHITE BLOOD COUNT 5.3 K/uL (4.5-11.5) RED BLOOD COUNT 3.97 L M/uL (4.00-5.20) HEMOGLOBIN 11.9 L gm/dL (12.0-16.0) HEMATOCRIT 36.5 % (36.0-46.0) MEAN CELL VOLUME 92 fL (80-100) MEAN CORPUSCULAR HGB 30 pg (26-34) MEAN CORPUSCULAR HGB CONC 33 g/dL (31-37) RED CELL DISTRIBUTION WIDTH 16.8 H % (11.6-14.8) PLATELET COUNT 329 K/uL (150-400) NEUTROPHIL % 72.7 % (50-75) LYMPH % 17.6 L % (25-40) MONO % 8.2 % (3-14) EOSINOPHIL % 1.1 % (0-4) BASOPHIL % 0.4 % (0-2) PT with INR: (AVIVA: 07/15/2016 13:55) ( [facility] 07[facility]15[facility] 14:34) Final results Test Result Flag Units (Reference) INR 3.3 H (0.8-1.2) Low Intensity Therapy: INR 1.5-2.0 PT range 18.5-23.1Mod.Intensity Therapy: INR 2.0-3.0 PT range 23.1-31.5High Intensity Therapy: INR 2.5-3.5 PT range 27.4-35.5High Intensity Therapy 2: INR 3.0-4.0 PT range 31.5-39.3 . PROGRESS AND PROCEDURES Patient/family counseled. Disposition: Discharged. Condition: stable and improved. CLINICAL IMPRESSION Over-anticoagulation: Improved to INR 3.3. INSTRUCTIONS (Start coumadin tomorrow at 2mg a day until see Dr Fitzgerald). Warnings: Further evaluation is necessary. GENERAL WARNINGS: Return or contact your physician immediately if your condition worsens or changes unexpectedly, if not improving as expected, or if other problems arise. Your Current Medications: CONTINUE TAKING THE FOLLOWING MEDICATIONS: Est Estrogens-Methyltest Oral : Tablet 1.25-2.5 mg, 1/2 tablet daily. Fluconazole Oral : 200 mg daily, last dose is day before yesterday. PARoxetine HCl Oral : 20 mg, Last dose was 2 days ago. Understanding of the discharge instructions verbalized by patient and family. Discharge instructions reviewed with and understanding was verbalized by spouse. Follow-up with: Kaushik Fitzgerald MD, [facility], [phone], [facility], [address] [place] [address].[address], [facility] Follow up Saturday in two days as scheduled. (Electronically signed by Franky Collier MD 07/19/2016 7:42)
--- NOTE | 2016-07-15 14:49 | ED NURSING NOTES ---
Clinical Report - Nurses [facility] [address] [place] [address] 07/15/2016 13:39 Patient: GERMÁN UBSCH TRIAGE Triage time 13:45. Acuity: LEVEL 5. Chief Complaint: (HIGH INR, PT INSTRUCTED TO COME BACK TO ED BY ERMD). Alert. --13:49 Carmina Arroyo R.N. 13:45 07/15/16. BP: 117/73. HR: 87. RR: 18. O2 saturation: 100%. Pain level now: 0/10. --13:49 Carmina Arroyo R.N. 13:53 07/15/16. Temp: 98.3 F. --13:53 Carmina Arroyo R.N. Weight: 68 kg. Height/Length: 62 inches. BMI: 27.4. --13:45 Carmina Arroyo R.N. Medications Est Estrogens-Methyltest Oral (Tablet 1.25-2.5 mg) 1/2 tablet, daily. Fluconazole Oral 200 mg, daily (last dose is day before yesterday). PARoxetine HCl Oral 20 mg (Last dose was 2 days ago). --13:47 Carmina Arroyo R.N. Allergies morphine. --13:47 Carmina Arroyo R.N. History Arrived by private vehicle. Historian: patient. Accompanied by spouse. Onset. (6 days ago). --13:49 Carmina Arroyo R.N. PROBLEMS: DVT - Deep Venous Thrombosis. --13:48 Carmina Arroyo R.N. ADDITIONAL SURGERIES: Endoscopy. Gallbladder Surgery. Hiatal hernia. Hysterectomy. Tonsillectomy. --13:48 Carmina Arroyo R.N. Interventions ID band on patient. To room. --13:49 Carmina Arroyo R.N. PHYSICAL ASSESSMENT 13:49 07/15/16. GENERAL / NEURO / PSYCH: Alert. Oriented X 4. --13:49 Carmina Arroyo R.N. 13:47. GI / : ( Pt has gastrostomy tube). --13:50 Carmina Arroyo R.N. NURSING PROGRESS NOTES 13:49 07/15/16. Patient identifiers checked. Call light placed in reach. Bed placed in lowest position. Patient ready for evaluation- chart flagged. --13:49 Carmina Arroyo R.N. 13:55. Patient ID band checked for patient name and birthdate: patient confirmed. Blood samples drawn from the right antecubital space with syringe and 22g butterfly by [employer] per protocol ; labeled in presence of the patient and sent to lab: [email or web address] set. --14:07 Adriana Connelly. DISPOSITION / DISCHARGE 15:01 07/15/16. BP: 106/74. HR: 78. RR: 18. O2 saturation: 100%. --15:02 Carmina Arroyo R.N. 15:00. Condition at departure: improved. No learning barriers present. Reviewed medication(s) information (restart Coumadin tomorrow at 2 mg/daily). Reviewed referrals (Dr. Fitzgerald). Patient and spouse verbalized understanding. Written instructions provided. The patient was discharged home and accompanied by spouse. She left the Emergency Department ambulatory and via private vehicle. --15:03 Carmina Arroyo R.N. Locked/Released at 07/15/2016 15:04 by Carmina Arroyo R.N.
--- NOTE | 2016-07-15 14:50 | ED ORDER SUMMARY ---
..... Patient: GERMÁN BUSCH OrderSheet [facility] VisitID: [id number] [address] [place] [address] 71y, F Registration Date/Time: 07/15/2016 ORDER SHEET Weight: 68.0 kg Allergies: morphine GENERAL ORDERS: PT with INR Urgent (13:48 07/15/2016 Jade SWEENEY) (Ack 13:56 Jose) (14:06 Mary Alice) CBC w Diff Urgent (13:48 07/15/2016 Jade SWEENEY) (Ack 13:56 Jose) (14:06 Mary Alice) MEDICATION ORDERS: IV FLUIDS: ORDER SHEET NOTES: [Electronically signed by Carmina Arroyo R.N. (15:04 07/15/2016)] [Electronically signed by Franky Collier MD (07:42 07/19/2016)] [Electronically locked/signed by Carmina Arroyo R.N. (15:04 07/15/2016)]
--- NOTE | 2016-07-15 14:50 | ED ORDER SUMMARY ---
..... Patient: GERMÁN BUSCH OrderSheet [facility] VisitID: [id number] [address] [place] [address] 71y, F Registration Date/Time: 07/15/2016 ORDER SHEET Weight: 68.0 kg Allergies: morphine GENERAL ORDERS: PT with INR Urgent (13:48 07/15/2016 Jade SWEENEY) (Ack 13:56 Jose) (14:06 Mary Alice) CBC w Diff Urgent (13:48 07/15/2016 Jade SWEENEY) (Ack 13:56 Jose) (14:06 Mary Alice) MEDICATION ORDERS: IV FLUIDS: ORDER SHEET NOTES: [Electronically signed by Carmina Arroyo R.N. (15:04 07/15/2016)] [Electronically signed by Franky Collier MD (07:42 07/19/2016)] [Electronically locked/signed by Carmina Arroyo R.N. (15:04 07/15/2016)]
--- NOTE | 2016-07-19 07:43 | ED DISCHARGE INSTRUCTIONS ---
Patient: GERMÁN BUSCH General Instructions [facility] VisitID: [id number] [address] [place] [address] 71y, F Registration Date/Time: 07/15/2016 Over-anticoagulation: Improved to INR 3.3. INSTRUCTIONS (Start coumadin tomorrow at 2mg a day until see Dr Fitzgerald). Warnings: Further evaluation is necessary. GENERAL WARNINGS: Return or contact your physician immediately if your condition worsens or changes unexpectedly, if not improving as expected, or if other problems arise. Your Current Medications: CONTINUE TAKING THE FOLLOWING MEDICATIONS: Est Estrogens-Methyltest Oral : Tablet 1.25-2.5 mg, 1/2 tablet daily. Fluconazole Oral : 200 mg daily, last dose is day before yesterday. PARoxetine HCl Oral : 20 mg, Last dose was 2 days ago. Understanding of the discharge instructions verbalized by patient and family. Discharge instructions reviewed with and understanding was verbalized by spouse. Follow-up with: Kaushik Fitzgerald MD, [facility], [phone], [facility], [address] [place] [address].[place] [address] Follow up Saturday in two days as scheduled. (Electronically signed by Franky Collier MD 07/19/2016 7:42)
--- NOTE | 2016-07-19 07:43 | ED MAR SUMMARY ---
..... Medication Administration Record [facility] [address] [place], [place] [id number] Patient: GERMÁN BUSCH Visit ID: [id number] 71y, F Weight: 68.0 kg Height/Length: 62 in BMI: 27.4 ALLERGIES: morphine
--- NOTE | 2016-07-19 07:43 | ED MAR SUMMARY ---
..... Medication Administration Record [facility] [address] [place], [place] [id number] Patient: GERMÁN BUSCH Visit ID: [id number] 71y, F Weight: 68.0 kg Height/Length: 62 in BMI: 27.4 ALLERGIES: morphine
--- NOTE | 2016-07-19 07:43 | ED MED RECONCILIATION SUMMARY ---
Patient: GERMÁN BUSCH Medication Reconciliation Report [facility] VisitID: [id number] [address] [place] [address] 71y, F Registration Date/Time: 07/15/2016 Weight: 68.0 kg Height/Length: 62 in. BMI: 27.4 ALLERGIES: morphine The patient's Home Medications are listed below: CONTINUE TAKING THE FOLLOWING MEDICATIONS: Est Estrogens-Methyltest Oral (1.25-2.5 mg) 1/2 tablet, daily Fluconazole Oral 200 mg, daily, last dose is day before yesterday PARoxetine HCl Oral 20 mg, Last dose was 2 days ago The source(s) of the original Home Medication information: Not obtained. The following Medications were given to the patient in the Emergency Department: None. The following Medications were prescribed to the patient: None.
--- NOTE | 2016-07-19 07:43 | ED MED RECONCILIATION SUMMARY ---
Patient: GERMÁN BUSCH Medication Reconciliation Report [facility] VisitID: [id number] [address] [place] [address] 71y, F Registration Date/Time: 07/15/2016 Weight: 68.0 kg Height/Length: 62 in. BMI: 27.4 ALLERGIES: morphine The patient's Home Medications are listed below: CONTINUE TAKING THE FOLLOWING MEDICATIONS: Est Estrogens-Methyltest Oral (1.25-2.5 mg) 1/2 tablet, daily Fluconazole Oral 200 mg, daily, last dose is day before yesterday PARoxetine HCl Oral 20 mg, Last dose was 2 days ago The source(s) of the original Home Medication information: Not obtained. The following Medications were given to the patient in the Emergency Department: None. The following Medications were prescribed to the patient: None.
--- NOTE | 2016-07-19 07:43 | ED DISCHARGE INSTRUCTIONS ---
Patient: GERMÁN BUSCH General Instructions [facility] VisitID: [id number] [address] [place] [address] 71y, F Registration Date/Time: 07/15/2016 Over-anticoagulation: Improved to INR 3.3. INSTRUCTIONS (Start coumadin tomorrow at 2mg a day until see Dr Fitzgerald). Warnings: Further evaluation is necessary. GENERAL WARNINGS: Return or contact your physician immediately if your condition worsens or changes unexpectedly, if not improving as expected, or if other problems arise. Your Current Medications: CONTINUE TAKING THE FOLLOWING MEDICATIONS: Est Estrogens-Methyltest Oral : Tablet 1.25-2.5 mg, 1/2 tablet daily. Fluconazole Oral : 200 mg daily, last dose is day before yesterday. PARoxetine HCl Oral : 20 mg, Last dose was 2 days ago. Understanding of the discharge instructions verbalized by patient and family. Discharge instructions reviewed with and understanding was verbalized by spouse. Follow-up with: Kaushik Fitzgerald MD, [facility], [phone], [facility], [address] [place] [address].[place] [address] Follow up Saturday in two days as scheduled. (Electronically signed by Franky Collier MD 07/19/2016 7:42)
== END 2016-07-15 15:00 | disposition home or self-care (01) ==
LOC: ED SRH 13:38
DX: T45.7X1A Poisoning by anticoagulant antagonists, vitamin K and other coagulants, accidental (unintentional), initial encounter (principal); Z79.899 Other long term (current) drug therapy; Z88.5 Allergy status to narcotic agent; Z86.718 Personal history of other venous thrombosis and embolism
CPT/HCPCS: 94060; 95059